=== PATIENT | female | born 1970 | race Asian ===

== ENCOUNTER → 2016-11-09 | Outpatient (CLI) | payer BC | LOC: ZCOL.LAB 15:49 | DX: R06.00 Dyspnea, unspecified (principal); M79.662 Pain in left lower leg ==

== ENCOUNTER → 2016-12-29 | Outpatient (CLI) | payer BC | LOC: MC.RAD 13:40 | DX: Z12.31 Encounter for screening mammogram for malignant neoplasm of breast (principal) ==

== ENCOUNTER → 2017-03-09 | Outpatient (CLI) | payer BC | LOC: COL.VAS 10:15 | DX: R00.2 Palpitations (principal) ==

== ENCOUNTER → 2018-01-25 | Outpatient (CLI) | payer OTHER | LOC: MC.RAD 13:20 | DX: Z12.31 Encounter for screening mammogram for malignant neoplasm of breast (principal); Z98.82 Breast implant status ==

== ENCOUNTER → 2019-02-19 | Outpatient (CLI) | payer OTHER | LOC: MC.RAD 13:21 | DX: Z12.31 Encounter for screening mammogram for malignant neoplasm of breast (principal) ==

== ENCOUNTER → 2020-01-30 | Outpatient (CLI) | payer OTHER | LOC: MC.RAD 11:43 → COL.RAD 11:43 | DX: Z12.31 Encounter for screening mammogram for malignant neoplasm of breast (principal); Z98.82 Breast implant status ==

== ENCOUNTER → 2020-12-03 | Outpatient (CLI) | payer OTHER | LOC: MC.RAD 13:15 | DX: Z12.31 Encounter for screening mammogram for malignant neoplasm of breast (principal); Z98.82 Breast implant status ==

== ENCOUNTER → 2021-12-16 | Outpatient (CLI) | payer OTHER | LOC: MC.RAD 13:53 | DX: Z12.31 Encounter for screening mammogram for malignant neoplasm of breast (principal) ==

== ENCOUNTER → 2023-01-05 | Outpatient (CLI) | payer OTHER | LOC: CANSCHCLI → MC.RAD 13:56 → COL.RAD 13:56 → MC.RAD 14:00 | DX: Z12.31 Encounter for screening mammogram for malignant neoplasm of breast (principal) ==

== ENCOUNTER → 2023-11-09 | Outpatient (CLI) | payer OTHER | LOC: MC.RAD 12:59 | DX: Z12.31 Encounter for screening mammogram for malignant neoplasm of breast (principal) ==